=== PATIENT | female | born 1995 | race African-American/Black ===

== ENCOUNTER 2017-06-02 20:23 | Emergency (ER) | payer OTHER ==
[~2017-06-02] VITALS: Ht 149.9 cm; Wt 79.5 kg
[~2017-06-02 20:23] MED LIST: PRENTAB72 PO
[2017-06-02 20:25] VITALS: BP 145/76; PULSE 72; RESP 16; TEMP 98.7; O2SAT 100
[2017-06-02] MEDS ORDERED: SODIUM CHLORIDE 0.9% FLUSH 10 ML FLUSH IV FLUSH PRN (21:45)
[2017-06-02] MEDS ORDERED: FAMOTIDINE 20 MG/2 ML VIAL IV PUSH ONE (21:45)
[2017-06-02] MEDS ORDERED: methylPREDNISolone SOD SUCC 125 MG/2 ML VIAL IV PUSH ONE (21:45)
[2017-06-02] MEDS ORDERED: diphenhydrAMINE HCL 50 MG/ML VIAL IVP ONE (21:45)
--- NOTE | 2017-06-02 21:46 | PD ---
HPI Chief Complaint: ENT Complaint Time Seen by Provider: 21:40 Travel History International Travel<30 days: No Contact w/Intl Traveler<30days: No Traveled to known affect area: No History of Present Illness HPI 22-year-old female here for evaluation of possible allergic reaction. The patient reports that she was at work today when she put on latex gloves at around 7:30 PM. Shortly after she noted swelling in her throat and feeling of numbness in her neck. She states that the symptoms have slightly improved since then. She is able to swallow and tolerate her secretions. No respiratory difficulties. No abdominal pain, nausea, or vomiting. No rash. PFSH Past Medical History Medical History: Denies Significant Hx Diminished Hearing: No Tetanus Vaccination: Unknown Influenza Vaccination: No ?: Not LMP: 05/02/17 : 1 Para: 0 Miscarriage: 1 Past Surgical History Surgical History: No Previous Surgery Social History Alcohol Use: No Tobacco Use: No Substance Use: No Allergies-Medications (Allergen,Severity, Reaction): Coded Allergies: Fish Containing Products (Unverified Allergy, Intermediate, swelling, 04/12) codeine (Unverified Adverse Reaction, Intermediate, 04/12/17) VOMITING Reported Meds & Prescriptions Reported Meds & Active Scripts Active Review of Systems Except as stated in HPI: all other systems reviewed are Neg Physical Exam Narrative GENERAL: Well-developed, well-nourished, comfortable, no apparent distress. SKIN: Focused skin assessment warm/dry. No rash. HEAD: Atraumatic. Normocephalic. EYES: Pupils equal and round. No scleral icterus. No injection or drainage. ENT: No nasal bleeding or discharge. Mucous membranes pink and moist. Oropharynx. No drooling or stridor. Normal phonation. NECK: Trachea midline. No JVD. No swelling. No palpable thyroid nodules or abnormality. CARDIOVASCULAR: Regular rate and rhythm. RESPIRATORY: No accessory muscle use. Clear to auscultation. Breath sounds equal bilaterally. GASTROINTESTINAL: Abdomen soft, non-tender, nondistended. MUSCULOSKELETAL: No obvious deformities. No clubbing. No cyanosis. No edema. NEUROLOGICAL: Awake and alert. No obvious cranial nerve deficits. Motor grossly within normal limits. Normal speech. PSYCHIATRIC: Appropriate mood and affect; insight and judgment normal. Data Data Last Documented VS Vital Signs Date Time Temp Pulse Resp B/P (MAP) Pulse Ox O2 Delivery O2 Flow Rate FiO2 06/02/17 20:25 98.7 72 16 145/76 (99) 100 Room Air Orders Orders Basic Metabolic Panel (Bmp) (06/02/17 21:44) Beta Hcg (Quant/Titer) (06/02/17 21:44) Complete Blood Count With Diff (06/02/17 21:44) Iv Access Insert/Monitor (06/02/17 21:44) Ecg Monitoring (06/02/17 21:44) Oximetry (06/02/17 21:44) Sodium Chloride 0.9% Flush (Ns Flush) (06/02/17 21:45) Diphenhydramine Inj (Benadryl Inj) (06/02/17 21:45) Methylprednisolone So Succ Inj (Solumedr (06/02/17 21:45) Famotidine Inj (Pepcid Inj) (06/02/17 21:45) Labs Laboratory Tests Test 06/02/17 22:05 White Blood Count 11.1 TH/MM3 Red Blood Count 4.15 MIL/MM3 Hemoglobin 12.4 GM/DL Hematocrit 37.9 % Mean Corpuscular Volume 91.3 FL Mean Corpuscular Hemoglobin 29.9 PG Mean Corpuscular Hemoglobin Concent 32.8 % Red Cell Distribution Width 14.0 % Platelet Count 264 TH/MM3 Mean Platelet Volume 7.8 FL Neutrophils (%) (Auto) 56.9 % Lymphocytes (%) (Auto) 34.1 % Monocytes (%) (Auto) 7.2 % Eosinophils (%) (Auto) 1.4 % Basophils (%) (Auto) 0.4 % Neutrophils # (Auto) 6.3 TH/MM3 Lymphocytes # (Auto) 3.8 TH/MM3 Monocytes # (Auto) 0.8 TH/MM3 Eosinophils # (Auto) 0.2 TH/MM3 Basophils # (Auto) 0.0 TH/MM3 CBC Comment DIFF FINAL Differential Comment Blood Urea Nitrogen 14 MG/DL Creatinine 0.93 MG/DL Random Glucose 79 MG/DL Calcium Level 8.7 MG/DL Sodium Level 141 MEQ/L Potassium Level 4.0 MEQ/L Chloride Level 107 MEQ/L Carbon Dioxide Level 27.9 MEQ/L Anion Gap 6 MEQ/L Estimat Glomerular Filtration Rate 90 ML/MIN Human Chorionic Gonadotropin, Quant LESS THAN 1 MIU/ML MDM Medical Decision Making Medical Screen Exam Complete: Yes Emergency Medical Condition: Yes Differential Diagnosis Allergic reaction, electrolyte abnormality Narrative Course Vital signs show heart rate 72, blood pressure 145/76, pulse ox 100% on room air , oral temp of 98.7F. CBC: WBC 11.1, hemoglobin 12.4, hematocrit 37.9, platelets 264. BMP is unremarkable. Beta hCG is negative. The patient was given a dose of IV Solu-Medrol, IV Benadryl, and IV Zantac, and on reassessment she is sleeping comfortably. She states she feels improved. She likely had an allergic reaction, possibly to latex. This was not a severe allergic reaction or anaphylactic reaction. Plan is to discharge her home with a prescription for prednisone. Benadryl [id number] as needed for any mild symptoms. She was informed on when to return to the emergency department. PMD follow-up this week. She verbalizes understanding and agreement with plan. Diagnosis Primary Impression: Allergic reaction Qualified Codes: T78.40XA - Allergy, unspecified, initial encounter Referrals: Primary Care Physician 3 days Additional Instructions: Follow-up with a primary care physician this week. Return to the emergency department for worsening symptoms or any other concerns as discussed. Scripts Prednisone (Prednisone) 50 Mg Tab 50 MG PO DAILY for 4 Days, #4 TAB 0 Refills Prov: Dwain Thomas MD 06/02/17 Disposition: 01 DISCHARGE HOME Condition: Stable Dwain Thomas MD Jun 02, 2017 21:46
[2017-06-02 22:19] LABS: AUTOMATED NEUTROPHIL # 6.3 TH/MM3 (1.8-7.7); BASOPHIL % 0.4 % (0.0-2.0); EOSINOPHIL # 0.2 TH/MM3 (0-0.4); EOSINOPHIL % 1.4 % (0.0-4.0); HEMATOCRIT 37.9 % (35.0-46.0); HEMO FLAGS DIFF FINAL; LYMPH % 34.1 % (9.0-44.0); LYMPHOCYTE # 3.8 TH/MM3 (1.0-4.8); MEAN CELL VOLUME 91.3 FL (80.0-100.0); MEAN CORPUSCULAR HEMOGLOBIN 29.9 PG (27.0-34.0); MEAN CORPUSCULAR HGB CONC 32.8 % (32.0-36.0); MONO % 7.2 % (0.0-8.0); NEUT % 56.9 % (16.0-70.0); PLATELET COUNT 264 TH/MM3 (150-450); RED BLOOD COUNT 4.15 MIL/MM3 (4.00-5.30); WHITE BLOOD COUNT 11.1 TH/MM3 (4.0-11.0)
[2017-06-02 22:30] VITALS: RESP 18
[2017-06-02 22:36] LABS: ANION GAP 6 MEQ/L (5-15); BICARBONATE 27.9 MEQ/L (21.0-32.0); BLOOD UREA NITROGEN 14 MG/DL (7-18); CHLORIDE 107 MEQ/L (98-107); GLOMERULAR FILTRATION RATE 90 ML/MIN (>89); SODIUM (NA) 141 MEQ/L (136-145)
[2017-06-02 22:40] LABS: BETA HCG QUANT LESS THAN 1 MIU/ML (0-5)
[2017-06-02] MEDS ORDERED: PRED50 PO (22:45)
== END 2017-06-02 23:01 | disposition home or self-care (01) ==
LOC: NEPD 20:23
DX: T78.40XA Allergy, unspecified, initial encounter (principal)
CPT/HCPCS: 80048; 84702; 85025; 96374; 96375; 99284; J1200; J2930